=== PATIENT | male | born 1990 | race Caucasian/White ===

== ENCOUNTER 2016-12-30 14:36 | Emergency (ER) | payer OTHER, SELFPAY ==
[2016-12-30] MEDS ORDERED: Ondansetron ODT 4 MG TAB ONE (15:50)
== END 2016-12-30 16:50 | disposition home or self-care (01) ==
LOC: MADERS 14:36
DX: B34.9 Viral infection, unspecified (principal); J45.909 Unspecified asthma, uncomplicated; F17.210 Nicotine dependence, cigarettes, uncomplicated
CPT/HCPCS: 99283; Q0162

== ENCOUNTER 2017-08-01 12:29 | Emergency (ER) | payer OTHER ==
--- NOTE | 2017-08-01 13:29 | RAD ---
CHEST 2 VIEWS: Date: 08/01/17 HISTORY: Chest pain. FINDINGS: Cardiac silhouette and pulmonary vasculature are unremarkable. Lungs are hyperinflated. Mediastinum i s midline. No lobar consolidation, pneumothorax, or pleural fluid. Lung apices are partially excluded from the frontal image. IMPRESSION: Pulmonary hyperinflation. No active cardiopulmonary abnormalities are otherwise demonstrated. POS: [facility]
== END 2017-08-01 13:15 | disposition home or self-care (01) ==
LOC: MADERS 12:29
DX: F41.9 Anxiety disorder, unspecified (principal); J45.909 Unspecified asthma, uncomplicated; F17.210 Nicotine dependence, cigarettes, uncomplicated
CPT/HCPCS: 71046

== ENCOUNTER 2020-10-08 23:34 | Emergency (ER) | payer BC, OTHER, SELFPAY ==
[2020-10-08] MEDS ORDERED: Lidocaine 1% 20 ML MDV ONE (23:53)
[2020-10-09] MEDS ORDERED: Bacitracin 1 PK ONE (00:35)
== END 2020-10-09 00:40 | disposition home or self-care (01) ==
LOC: MADERS 23:34
DX: S61.012A Laceration without foreign body of left thumb without damage to nail, initial encounter (principal); J45.909 Unspecified asthma, uncomplicated; F17.210 Nicotine dependence, cigarettes, uncomplicated; W26.0XXA Contact with knife, initial encounter
CPT/HCPCS: 12002

== ENCOUNTER 2024-11-08 19:21 | Emergency (ER) | payer BC, SELFPAY ==
[2024-11-08] MEDS ORDERED: Clindamycin 150 MG CAP ONE (19:42)
== END 2024-11-08 19:49 | disposition home or self-care (01) ==
LOC: MADERS 19:21
DX: K08.89 Other specified disorders of teeth and supporting structures (principal); K03.81 Cracked tooth; J45.909 Unspecified asthma, uncomplicated; F17.210 Nicotine dependence, cigarettes, uncomplicated
CPT/HCPCS: 99282